=== PATIENT | male | born 1960 | race Caucasian/White ===

== ENCOUNTER 2021-01-29 11:53 | Emergency (ER) | payer BC ==
[~2021-01-29] VITALS: Ht 170.2 cm; Wt 76.0 kg
[2021-01-29 14:04] LABS: BASOPHILS % 0.5 % (0.0-2.0); EOSINOPHILS % 0.7 % (0.0-5.0); HEMATOCRIT. 50.3 % (42.0-52.0); HEMOGLOBIN. 16.8 g/dL (14.0-18.0); LYMPHOCYTES % 23.2 % (20.0-50.0); MEAN CORPUSCULAR HEMOGLOBIN 31.6 pg (28.0-32.0); MEAN CORPUSCULAR VOLUME 94.9 fL (80.0-94.0); MEAN PLATELET VOLUME 9.8 fl (7.4-10.4); MONOCYTES % 6.3 % (2.0-8.0); NEUTROPHILS % 69.3 % (40.0-76.0); PLATELET 194 x1000/uL (130-400); RED BLOOD CELL COUNT 5.31 mill/uL (4.7-6.1); RED CELL DISTRIBUTION WIDTH 14.6 % (11.6-14.6)
[2021-01-29 14:07] LABS: CHLORIDE 108 mEq/L (98-107)
[2021-01-29 14:10] LABS: INR 1.1; PROTHROMBIN TIME 11.9 sec (9.6-11.0)
[2021-01-29 14:22] LABS: CLARITY URINE CLEAR (CLEAR); COLOR URINE YELLOW (YELLOW); KETONES URINE NEGATIVE (NEGATIVE); LEUKOCYTE ESTERASE URINE NEGATIVE (NEGATIVE); NITRITE URINE NEGATIVE (NEGATIVE); OCCULT BLOOD URINE NEGATIVE (NEGATIVE); PH URINE 6.5 (4.5-8.0); PROTEIN URINE 1+ (NEGATIVE); SPECIFIC GRAVITY URINE 1.025 (1.005-1.030); UROBILINOGEN URINE 0.2 E.U./dL (0.2-1.0)
[2021-01-29] MEDS ORDERED: SODIUM CHLORIDE 0.9% 1,000 ML IV ONE (15:00)
[2021-01-29] MEDS ORDERED: AZITHROMYCIN 500 MG TABLET PO ONE (16:00)
[2021-01-29] MEDS ORDERED: AZIT250T12 PO (16:23)
[2021-01-29 17:20] VITALS: BP 130/84
[2021-01-30] MEDS ORDERED: NAPR220T66 PO (23:04)
[2021-02-04] MEDS ORDERED: POTA20TA82 PO (10:42)
[2021-02-04] MEDS ORDERED: CARV25TA47 MT (10:42)
[2021-02-04] MEDS ORDERED: FURO20TA4 PO (10:42)
[2021-02-04] MEDS ORDERED: LISI2.5T47 PO (10:42)
[2021-02-04] MEDS ORDERED: AMI2 PO (10:42)
== END 2021-01-29 17:15 | disposition home or self-care (01) ==
LOC: ER 11:53
DX: R05 Cough (principal); R10.9 Unspecified abdominal pain; Z20.822 Contact with and (suspected) exposure to COVID-19; Z98.890 Other specified postprocedural states
CPT/HCPCS: 36415; 71045; 80053; 81003; 85025; 87426; 96360; 99284